=== PATIENT | female | born 1985 | race Caucasian/White ===

== ENCOUNTER 2025-01-10 14:21 | Outpatient (OUT) | payer BC, SELFPAY ==
[2025-01-10 15:24] LABS: Basophils Absolute Auto 0.1 10^3/uL (0.0-0.1); Basophils Percent Auto 0.8 % (0.2-2.0); Eosinophils Absolute Auto 0.2 10^3/uL (0.0-0.7); Eosinophils Percent Auto 2.7 % (0.9-7.0); Hematocrit 39.2 % (36.0-48.0); Hemoglobin 13.1 g/dL (12.0-16.0); Lymphocytes Absolute Auto 2.1 10^3/uL (1.2-3.8); Lymphocytes Percent Auto 28.9 % (20.5-60.0); Mean Corpuscular HGB Conc 33.4 g/dL (29.9-35.2); Mean Corpuscular Hemoglobin 30.3 pg (26.7-34.0); Mean Corpuscular Volume 90.5 fL (81.0-99.0); Mean Platelet Volume 9.4 fL (9.5-13.5); Monocytes Absolute Auto 0.5 10^3/uL (0.3-0.8); Monocytes Percent Auto 7.3 % (1.7-12.0); Neutrophils Absolute Auto 4.3 10^3/uL (1.4-6.5); Neutrophils Percent Auto 60.3 % (43.0-75.0); Platelet Count 271 10^3/uL (150-450); Red Blood Count 4.33 10^6/uL (4.20-5.40); Red Cell Distribution Width 11.9 % (11.0-15.0); White Blood Count 7.1 10^3/uL (4.0-11.0)
[2025-01-10 15:35] LABS: Erythrocyte Sedimentation Rate 6 mm/hr (<=20)
[2025-01-10 15:36] LABS: Percent Iron Saturation 23.2 %
[2025-01-10 15:46] LABS: Alanine Aminotransferase 16 U/L (14-59); Albumin Globulin Ratio 1.2; Albumin Level 4.1 g/dL (3.4-5.0); Alkaline Phosphatase 51 U/L (46-116); Anion Gap 13.5; Aspartate Amino Transferase 15 U/L (15-37); BUN Creatinine Ratio 14.8; Bilirubin Total 0.5 mg/dL (0.2-1.0); C Reactive Protein <0.50 mg/dL (<=0.50); Calcium 8.9 mg/dL (8.5-10.1); Carbon Dioxide 28.7 mmol/L (21.0-32.0); Chloride 104 mmol/L (98-107); Estimated GFR (African America >60 (>=60 mL/min/1.73m^2); Estimated GFR (Non-African Ame >60 (>=60 mL/min/1.73m^2); Free T3 2.96 pg/mL (2.18-3.98); Globulin 3.3 g/dL; Glucose 79 mg/dL (74-106); Potassium 4.2 mmol/L (3.5-5.1); Sodium 142 mmol/L (136-145); Thyroid Stimulating Hormone 1.154 uIU/mL (0.358-3.740); Total Protein 7.4 g/dL (6.4-8.2); Uric Acid 5.8 mg/dL (2.6-6.0)
[2025-01-10 15:58] LABS: Free T4 1.15 ng/dL (0.76-1.46)
[2025-01-11 03:08] LABS: Vitamin B12 524 pg/mL (232-1245)
[2025-01-11 04:09] LABS: Antistreptolysin O Ab 203.7 IU/mL (0.0-200.0); Rheumatoid Factor (RF) 12.8 IU/mL (<14.0); Transferrin 245 mg/dL (192-364)
[2025-01-13 11:08] LABS: ANA Direct Negative (Negative)
[2025-01-13 15:07] LABS: Thyroglobulin Antibody <1.0 IU/mL (0.0-0.9); Thyroid Peroxidase (TPO) Ab 16 IU/mL (0-34)
== END 2025-01-10 14:22 | disposition home or self-care (01) ==
LOC: LAB 14:27
PROVIDERS: PCP Nurse Practitioner; Visit Provider Nurse Practitioner
DX: R53.83 Other fatigue (principal); R56.9 Unspecified convulsions; E55.9 Vitamin D deficiency, unspecified; L65.9 Nonscarring hair loss, unspecified; R21 Rash and other nonspecific skin eruption
CPT/HCPCS: 36415; 80053; 82533; 82607; 82728; 82746; 83540; 83550; 84255; 84439; 84443; 84466; 84481; 84482; 84550; 84630; 85652; 86038; 86060; 86140; 86376; 86431; 86800